=== PATIENT | female | born 1985 | race Caucasian/White ===

== ENCOUNTER 2020-08-19 07:39 | Inpatient (IN) | payer MEDICAID ==
[~2020-08-19] VITALS: Ht 157.5 cm; Wt 134.7 kg
[~2020-08-19 07:39] MED LIST: DOCU-131 PO; IBUP-1222 PO; IBUP-1223 PO; OXYC-302 PO; PREN1TAB60 PO; iron PO
[2020-08-19 08:33] LABS: BASOPHILS % (AUTO) 0 % (0-1); EOSINOPHILS % (AUTO) 0 % (1-7); LYMPHOCYTES % (AUTO) 8 % (22-44); MEAN CORPUSCULAR HEMOGLOBIN 28.8 pg (27.0-34.8); MEAN CORPUSCULAR HGB CONC 32.6 g/dL (32.4-35.8); MEAN PLATELET VOLUME 8.1 fL (7.4-10.4); MONOCYTES % (AUTO) 4 % (2-9); NEUTROPHILS % (AUTO) 87 % (42-75); PLATELET COUNT 199 x10^3/uL (130-400); RED CELL DISTRIBUTION WIDTH 14.7 % (9.6-15.2)
[2020-08-19 08:39] LABS: ALANINE AMINOTRANSFERASE 105 U/L (12-78); ALBUMIN 3.2 g/dL (3.4-5.0); ANION GAP 5 mmol/L (5-15); CALCIUM 8.4 mg/dL (8.5-10.1); CHLORIDE 108 mmol/L (98-107); CREATININE 0.76 mg/dL (0.55-1.02)
[2020-08-19 08:41] LABS: ALKALINE PHOSPHATASE 83 U/L (45-117); BILIRUBIN,TOTAL 0.5 mg/dL (0.2-1.0); TOTAL PROTEIN 7.7 g/dL (6.4-8.2)
--- NOTE | 2020-08-19 09:10 | NUR ---
PT SEEN AT URGENT CARE ON SUNDAY, ED ON SUNDAY, BACK TO ED TODAY FOR WORSENING SX. FEVER, DYSPNEA, SOB, GENERALIZED BACK PAIN. ABLE TO SPEAK IN PARTIAL SENTENCES. TYLENOL AT 0430. STATES SHE HAS BILATERAL PNEUMONIA, WAS SENT HOME WITH STEROIDS AND INHALER; INSTRUCTED TO RETURN IF SX WORSEN.
[2020-08-19] MEDS ORDERED: INHALER (09:21)
[2020-08-19] MEDS ORDERED: ANTIBIOTIC (09:21)
[2020-08-19 09:28] LABS: MD SCAN
[2020-08-19] MEDS ORDERED: SODIUM CHLORIDE 0.9% 1,000ML IVBOLUS ONE (10:00)
[2020-08-19] MEDS ORDERED: IBUPROFEN 800 MG TABLET PO ONE (10:00)
[2020-08-19] MEDS ORDERED: BENZONATATE 100 MG CAPSULE PO ONE (10:00)
--- NOTE | 2020-08-19 10:12 | NUR ---
CT WAITING FOR IV ACCESS- RN AWARE
[2020-08-19] MEDS ORDERED: BENZONATATE 100 MG CAPSULE ONE ×3 (10:52→21:05)
[2020-08-19] MEDS ORDERED: IBUPROFEN 800 MG TABLET ONE (10:52)
--- NOTE | 2020-08-19 11:01 | NUR ---
MOTRIN, TESSELON GIVEN. NS BOLUS HUNG; INFUSING VIA RAC IV ACCESS.
--- NOTE | 2020-08-19 11:11 | NUR ---
TO CT PER KATHE
[2020-08-19 11:18] LABS: C-REACTIVE PROTEIN, QUANT 8.5 mg/dL (0.02-0.49)
[2020-08-19 11:21] LABS: D-DIMER (DIC) 1.29 ug/mlFEU (0.00-0.52); PROTIME 10.6 Seconds (9.6-11.5)
[2020-08-19] MEDS ORDERED: OMNIPAQUE 350 MG/ML, 150 ML BOTTLE ONE (11:40)
[2020-08-19] MEDS ORDERED: CEFTRIAXONE PMX 1GM/50ML 50 ML IV ONE (12:30)
[2020-08-19 12:34] LABS: TROPONIN I < 0.015 ng/mL (0.000-0.045)
[2020-08-19] MEDS ORDERED: CEFTRIAXONE PMX 1GM/50ML 50 ML ONE (13:40)
--- NOTE | 2020-08-19 13:57 | NUR ---
PT REFUSING LUNCH TRAY AT THIS TIME; OPTING FOR APPLESAUCE.
--- NOTE | 2020-08-19 14:00 | NUR ---
AGUSTO MCCLOUD, INFUSING VIA PUMP; IV SITE PATENT.
--- NOTE | 2020-08-19 14:10 | NUR ---
ROOM O2 SAT 89%. O2 4LNC REAPPLIED.
--- NOTE | 2020-08-19 14:38 | NUR ---
PT ENDORSED TO BREAK RN.
--- NOTE | 2020-08-19 15:21 | NUR ---
PT REPORT FROM SUZAN BENNETT. PT CARE TO BE RESUMED.
[2020-08-19] MEDS ORDERED: ONDANSETRON ODT 4 MG PO PRN (16:00)
[2020-08-19] MEDS ORDERED: ONDANSETRON 2MG/ML, 2ML IVPush PRN (16:00)
[2020-08-19] MEDS: DEXAMETHASONE 4 MG/ML, 1ML IVPush SCH ×3 (16:00→21:31)
[2020-08-19] MEDS ORDERED: ENALAPRILAT 1.25 MG/ML, 2ML IVPush PRN (16:00)
--- NOTE | 2020-08-19 16:52 | NUR ---
POSSIBLY DUPLICATE ORDERS NOW IN CHART FOR ROCEPHIN AND TESSELON; TWO ORDERS FOR LOVENOX, DIFFERENT DOSES. WILL CONSULT DR GOMEZ.
[2020-08-19] MEDS ORDERED: ASCORBIC ACID 500 MG TABLET ONE (16:58)
[2020-08-19] MEDS ORDERED: ENOXAPARIN 80 MG/0.8 ML ONE (16:58)
[2020-08-19] MEDS ORDERED: DEXAMETHASONE 4 MG/ML, 1ML ONE ×2 (16:58→21:08)
[2020-08-19] MEDS ORDERED: ENOXAPARIN 60 MG/0.6 ML ONE (16:59)
[2020-08-19] MEDS ORDERED: ENOXAPARIN 80 MG/0.8 ML SQ SCH (17:00)
[2020-08-19] MEDS ORDERED: ACETAMINOPHEN 325 MG TABLET ONE (17:04)
--- NOTE | 2020-08-19 17:04 | NUR ---
PT REQUESTING PAIN MED FOR MAC. TYLENOL ORDERED. ACETAMINOPHEN LISTED IN ALLERGY PROFILE; PT HAD REACTION TO HYDROCODONE/ACETAMINOPHEN; PT REPORTS SHE'S BEEN ABLE TO TAKE TYLENOL SINCE THEN W/OUT ANY PROBLEMS.
[2020-08-19] MEDS: BENZONATATE 100 MG CAPSULE PO SCH ×2 (17:10→21:31)
[2020-08-19] MEDS: ACETAMINOPHEN 325 MG TABLET PO PRN (17:10)
[2020-08-19] MEDS: ASCORBIC ACID 500 MG TABLET PO SCH (17:15)
--- NOTE | 2020-08-19 17:15 | NUR ---
RAC IV SITE OCCLUDED.
[2020-08-19] MEDS: ENOXAPARIN 80 MG/0.8 ML SQ SCH (17:17)
[2020-08-19] MEDS: ENOXAPARIN 60 MG/0.6 ML SQ SCH (17:18)
[2020-08-19] MEDS ORDERED: ONDANSETRON 2MG/ML, 2ML ONE (17:48)
--- NOTE | 2020-08-19 18:45 | NUR ---
DINNER PROVIDED TO PT.
--- NOTE | 2020-08-19 18:59 | NUR ---
PT REPORT TO SUZAN MCDANIEL. PT CARE TRANSFERRED.
[2020-08-19 20:00] VITALS: BP 122/68
[2020-08-19] MEDS ORDERED: KETOROLAC 30 MG/1 ML ONE (21:04)
[2020-08-19] MEDS ORDERED: TRAZODONE 50MG TABLET ONE (21:19)
[2020-08-19] MEDS ORDERED: GUAIFENESIN/DM 200-20MG, 10ML UDC ONE (21:20)
[2020-08-19] MEDS: GUAIFENESIN/DM 200-20MG, 10ML UDC PO PRN (21:31)
[2020-08-19] MEDS: TRAZODONE 50MG TABLET PO PRN (21:31)
[2020-08-19] MEDS: KETOROLAC 30 MG/1 ML IV PRN (21:31)
--- NOTE | 2020-08-20 00:46 | NUR ---
Covering for break, pt sleeping rr equal and unlabored.
[2020-08-20 02:07] VITALS: BP 119/66
[2020-08-20] MEDS ORDERED: DEXAMETHASONE 4 MG/ML, 1ML ONE ×4 (04:54→21:47)
[2020-08-20] MEDS ORDERED: ENOXAPARIN 80 MG/0.8 ML ONE ×2 (04:54→15:43)
[2020-08-20] MEDS ORDERED: ENOXAPARIN 60 MG/0.6 ML ONE ×2 (04:55→15:44)
[2020-08-20] MEDS: DEXAMETHASONE 4 MG/ML, 1ML IVPush SCH ×4 (05:03→22:14)
[2020-08-20] MEDS: ENOXAPARIN 80 MG/0.8 ML SQ SCH ×2 (05:04→16:24)
[2020-08-20] MEDS: ENOXAPARIN 60 MG/0.6 ML SQ SCH ×2 (05:04→16:23)
[2020-08-20] MEDS ORDERED: KETOROLAC 30 MG/1 ML ONE ×2 (05:11→21:47)
[2020-08-20] MEDS ORDERED: GUAIFENESIN/DM 200-20MG, 10ML UDC ONE ×2 (05:12→21:47)
[2020-08-20] MEDS: KETOROLAC 30 MG/1 ML IV PRN ×2 (05:15→22:14)
[2020-08-20] MEDS: GUAIFENESIN/DM 200-20MG, 10ML UDC PO PRN ×2 (05:15→22:14)
[2020-08-20 05:32] LABS: CHLORIDE 105 mmol/L (98-107)
[2020-08-20 05:37] LABS: ALANINE AMINOTRANSFERASE 98 U/L (12-78); ALKALINE PHOSPHATASE 81 U/L (45-117); ANION GAP 5 mmol/L (5-15); BILIRUBIN,TOTAL 0.4 mg/dL (0.2-1.0); CALCIUM 8.6 mg/dL (8.5-10.1); CREATININE 0.63 mg/dL (0.55-1.02); TOTAL PROTEIN 7.7 g/dL (6.4-8.2)
[2020-08-20 05:40] LABS: BASOPHILS % (AUTO) 0 % (0-1); EOSINOPHILS % (AUTO) 0 % (1-7); LYMPHOCYTES % (AUTO) 12 % (22-44); MD NO; MEAN CORPUSCULAR HEMOGLOBIN 28.9 pg (27.0-34.8); MEAN CORPUSCULAR HGB CONC 32.7 g/dL (32.4-35.8); MEAN PLATELET VOLUME 8.4 fL (7.4-10.4); MONOCYTES % (AUTO) 5 % (2-9); NEUTROPHILS % (AUTO) 83 % (42-75); PLATELET COUNT 211 x10^3/uL (130-400); RED BLOOD COUNT 4.62 x10^6/uL (3.82-5.3); RED CELL DISTRIBUTION WIDTH 15.1 % (9.6-15.2)
[2020-08-20] MEDS ORDERED: ZINC SULFATE 220 MG CAPSULE ONE (09:01)
[2020-08-20] MEDS ORDERED: ASCORBIC ACID 500 MG TABLET ONE ×2 (09:02→15:43)
[2020-08-20] MEDS ORDERED: BENZONATATE 100 MG CAPSULE ONE ×3 (09:02→21:47)
[2020-08-20] MEDS: ZINC SULFATE 220 MG CAPSULE PO SCH (09:07)
[2020-08-20] MEDS: ASCORBIC ACID 500 MG TABLET PO SCH ×2 (09:07→16:23)
[2020-08-20] MEDS: BENZONATATE 100 MG CAPSULE PO SCH ×3 (09:08→22:13)
[2020-08-20] MEDS: CHOLECALCIFEROL 1,000 UNIT TABLET PO SCH (09:08)
[2020-08-20] MEDS ORDERED: ACETAMINOPHEN 325 MG TABLET ONE ×2 (09:15→21:47)
[2020-08-20] MEDS: ACETAMINOPHEN 325 MG TABLET PO PRN (09:16)
--- NOTE | 2020-08-20 09:16 | NUR ---
RECEIVED REPORT FROM ANGUS MCDANIEL RN. PT RESTING IN BED. NADN. VSS ON 2.5 L NC. PT AWARE OF POC FOR ADMISSION AND IV ABX AND MEDS PER DEC. PT PROVIDE W/ BREAKFAST TRAY.
--- NOTE | 2020-08-20 10:13 | NUR ---
REPORT GIVEN TO ADARSH RN'S.
--- NOTE | 2020-08-20 11:47 | NUR ---
PT RESTING IN [facility], NO COMPLAINTS AT THIS TIME.
[2020-08-20] MEDS: ALBUTEROL HFA 90 MCG/SPRAY INH SCH ×3 (13:00→22:13)
[2020-08-20] MEDS ORDERED: CEFTRIAXONE PMX 1GM/50ML 50 ML ONE (13:01)
[2020-08-20] MEDS: CEFTRIAXONE PMX 1GM/50ML 50 ML IV SCH (13:05)
[2020-08-20] MEDS ORDERED: ALBUTEROL HFA 90 MCG/SPRAY INH PRN (16:30)
--- NOTE | 2020-08-20 17:05 | NUR ---
PT RESTING IN [facility], NO COMPLAINTS AT THIS TIME.
--- NOTE | 2020-08-20 17:14 | NUR ---
BREAK RN, PT RESTING, NO NEEDS AT THIS TIME
[2020-08-20] MEDS ORDERED: TRAZODONE 50MG TABLET ONE (21:47)
[2020-08-20 22:09] VITALS: BP 100/56
[2020-08-20] MEDS: TRAZODONE 50MG TABLET PO PRN (22:13)
[2020-08-20] MEDS: BUTALB/APAP/CAFFEINE 50MG/325MG/40MG PO PRN (22:14)
[2020-08-21 03:02] VITALS: BP 104/50
[2020-08-21] MEDS ORDERED: DEXAMETHASONE 4 MG/ML, 1ML ONE ×3 (04:46→14:50)
[2020-08-21] MEDS ORDERED: ENOXAPARIN 80 MG/0.8 ML ONE ×2 (04:46→14:50)
[2020-08-21] MEDS ORDERED: ENOXAPARIN 60 MG/0.6 ML ONE ×2 (04:47→14:50)
[2020-08-21] MEDS ORDERED: GUAIFENESIN/DM 200-20MG, 10ML UDC ONE (04:48)
[2020-08-21] MEDS ORDERED: KETOROLAC 30 MG/1 ML ONE (04:52)
[2020-08-21] MEDS: KETOROLAC 30 MG/1 ML IV PRN (04:56)
[2020-08-21] MEDS: GUAIFENESIN/DM 200-20MG, 10ML UDC PO PRN (04:56)
[2020-08-21] MEDS: ENOXAPARIN 60 MG/0.6 ML SQ SCH ×2 (04:56→17:12)
[2020-08-21] MEDS: DEXAMETHASONE 4 MG/ML, 1ML IVPush SCH ×4 (04:56→20:58)
[2020-08-21] MEDS: ENOXAPARIN 80 MG/0.8 ML SQ SCH ×2 (04:57→17:13)
[2020-08-21] MEDS: ALBUTEROL HFA 90 MCG/SPRAY INH SCH ×4 (04:57→20:57)
[2020-08-21 05:11] LABS: BASOPHILS % (AUTO) 0 % (0-1); EOSINOPHILS % (AUTO) 0 % (1-7); LYMPHOCYTES % (AUTO) 14 % (22-44); MEAN CORPUSCULAR HEMOGLOBIN 28.9 pg (27.0-34.8); MEAN CORPUSCULAR HGB CONC 32.6 g/dL (32.4-35.8); MEAN PLATELET VOLUME 8.2 fL (7.4-10.4); MONOCYTES % (AUTO) 7 % (2-9); NEUTROPHILS % (AUTO) 79 % (42-75); PLATELET COUNT 261 x10^3/uL (130-400); RED BLOOD COUNT 4.47 x10^6/uL (3.82-5.3); RED CELL DISTRIBUTION WIDTH 14.6 % (9.6-15.2)
[2020-08-21 05:12] LABS: MD NO
[2020-08-21 05:22] LABS: ALANINE AMINOTRANSFERASE 82 U/L (12-78); ALBUMIN 2.9 g/dL (3.4-5.0); ANION GAP 4 mmol/L (5-15); CALCIUM 8.7 mg/dL (8.5-10.1); CHLORIDE 108 mmol/L (98-107); CREATININE 0.69 mg/dL (0.55-1.02)
[2020-08-21 05:30] LABS: ALKALINE PHOSPHATASE 70 U/L (45-117); BILIRUBIN,TOTAL 0.4 mg/dL (0.2-1.0); C-REACTIVE PROTEIN, QUANT 4.85 mg/dL (0.02-0.49); TOTAL PROTEIN 7.5 g/dL (6.4-8.2)
--- NOTE | 2020-08-21 07:16 | NUR ---
BEDSIDE REPORT RECEIVED FROM SUZAN MOYER FOR TRANSFER OF PATIENT CARE. PATIENT RESTING IN GURNEY WITH EYES CLOSED, RESPIRATIONS EVEN AND UNLABORED, CONNECTED TO DEPUTY PROSECUTING ATTORNEY, NO SIGNS OF ACUTE DISTRESS, CALL LIGHT WITHIN REACH.
[2020-08-21] MEDS ORDERED: ASCORBIC ACID 500 MG TABLET ONE ×2 (07:49→14:50)
[2020-08-21] MEDS ORDERED: ZINC SULFATE 220 MG CAPSULE ONE (07:49)
[2020-08-21] MEDS ORDERED: BENZONATATE 100 MG CAPSULE ONE ×2 (07:50→14:50)
[2020-08-21] MEDS: ASCORBIC ACID 500 MG TABLET PO SCH ×2 (08:52→14:53)
[2020-08-21] MEDS: ZINC SULFATE 220 MG CAPSULE PO SCH (08:52)
[2020-08-21] MEDS: BENZONATATE 100 MG CAPSULE PO SCH ×3 (08:52→20:58)
--- NOTE | 2020-08-21 09:03 | NUR ---
BREAKFAST TRAY PROVIDED TO PATIENT, PATIENT MEDICATED PER eMAR, VITAMIN D REQUESTED FROM PHARMACY AT 0800. CONNECTED TO VITALS MACHINE, NO SIGNS OF ACUTE DISTRESS, CALL LIGHT WITHIN REACH.
[2020-08-21] MEDS: CHOLECALCIFEROL 1,000 UNIT TABLET PO SCH (11:46)
--- NOTE | 2020-08-21 11:47 | NUR ---
BREAK RN: VITAMIN D GIVEN AND DOSE OF ALBUTEROL ADMINISTERED BY PATIENT. NO SIGNS OF ACUTE DISTRESS, CALL LIGHT WITHIN REACH, CONNECTED TO VITALS MACHINE.
[2020-08-21] MEDS: AZITHROMYCIN 500 MG in SODIUM CHLORIDE 0.9% 250 ML IV SCH (12:26)
[2020-08-21] MEDS ORDERED: CEFTRIAXONE PMX 1GM/50ML 50 ML ONE (13:26)
[2020-08-21] MEDS: CEFTRIAXONE PMX 1GM/50ML 50 ML IV SCH (14:45)
[2020-08-21 20:23] VITALS: BP 123/62
[2020-08-21] MEDS: BUTALB/APAP/CAFFEINE 50MG/325MG/40MG PO PRN (21:04)
[2020-08-22 00:37] VITALS: BP 120/60
[2020-08-22] MEDS: GUAIFENESIN/DM 200-20MG, 10ML UDC PO PRN (00:38)
[2020-08-22] MEDS: DEXAMETHASONE 4 MG/ML, 1ML IVPush SCH ×4 (02:55→21:27)
[2020-08-22] MEDS: ALBUTEROL HFA 90 MCG/SPRAY INH SCH ×4 (05:27→21:26)
[2020-08-22] MEDS: ENOXAPARIN 80 MG/0.8 ML SQ SCH ×2 (05:28→07:44)
[2020-08-22] MEDS: ENOXAPARIN 60 MG/0.6 ML SQ SCH (05:28)
[2020-08-22 06:30] LABS: C-REACTIVE PROTEIN, QUANT 1.6 mg/dL (0.02-0.49)
[2020-08-22 07:16] VITALS: BP 127/66
[2020-08-22] MEDS: ASCORBIC ACID 500 MG TABLET PO SCH ×2 (09:06→17:22)
[2020-08-22] MEDS: BENZONATATE 100 MG CAPSULE PO SCH ×3 (09:07→21:27)
[2020-08-22] MEDS: CHOLECALCIFEROL 1,000 UNIT TABLET PO SCH (09:07)
[2020-08-22] MEDS: ZINC SULFATE 220 MG CAPSULE PO SCH (09:07)
[2020-08-22] MEDS: KETOROLAC 30 MG/1 ML IV PRN (09:28)
[2020-08-22 12:37] VITALS: BP 110/58
[2020-08-22] MEDS: CEFTRIAXONE PMX 1GM/50ML 50 ML IV SCH (13:32)
[2020-08-22] MEDS: AZITHROMYCIN 500 MG in SODIUM CHLORIDE 0.9% 250 ML IV SCH (13:32)
[2020-08-22] MEDS: FUROSEMIDE 40 MG/4 ML IV SCH (13:38)
[2020-08-22 19:34] VITALS: BP 108/51
[2020-08-23 01:39] VITALS: BP 128/61
[2020-08-23] MEDS: DEXAMETHASONE 4 MG/ML, 1ML IVPush SCH ×4 (03:34→21:47)
[2020-08-23] MEDS: ALBUTEROL HFA 90 MCG/SPRAY INH SCH ×4 (05:41→21:00)
[2020-08-23] MEDS: GUAIFENESIN/DM 200-20MG, 10ML UDC PO PRN ×3 (06:00→21:47)
[2020-08-23 08:01] VITALS: BP 119/55
[2020-08-23] MEDS: FUROSEMIDE 40 MG/4 ML IV SCH (10:02)
[2020-08-23] MEDS: ASCORBIC ACID 500 MG TABLET PO SCH ×2 (10:03→15:53)
[2020-08-23] MEDS: ZINC SULFATE 220 MG CAPSULE PO SCH (10:03)
[2020-08-23] MEDS: BENZONATATE 100 MG CAPSULE PO SCH ×3 (10:03→21:46)
[2020-08-23] MEDS: CHOLECALCIFEROL 1,000 UNIT TABLET PO SCH (10:03)
[2020-08-23] MEDS: ENOXAPARIN 40 MG/0.4 ML SQ SCH (10:04)
[2020-08-23] MEDS: BUTALB/APAP/CAFFEINE 50MG/325MG/40MG PO PRN ×2 (11:52→21:47)
[2020-08-23] MEDS: AZITHROMYCIN 500 MG in SODIUM CHLORIDE 0.9% 250 ML IV SCH (11:58)
[2020-08-23 12:54] VITALS: BP 125/64
[2020-08-23] MEDS: CEFTRIAXONE PMX 1GM/50ML 50 ML IV SCH (15:53)
[2020-08-23 19:38] VITALS: BP 136/68
[2020-08-23] MEDS: KETOROLAC 30 MG/1 ML IV PRN (21:46)
[2020-08-24 01:08] VITALS: BP 121/64
[2020-08-24] MEDS: DEXAMETHASONE 4 MG/ML, 1ML IVPush SCH ×2 (03:43→09:56)
[2020-08-24] MEDS: ALBUTEROL HFA 90 MCG/SPRAY INH SCH ×2 (06:00→12:30)
[2020-08-24 08:38] VITALS: BP 130/76
[2020-08-24] MEDS: ENOXAPARIN 40 MG/0.4 ML SQ SCH (09:55)
[2020-08-24] MEDS: ASCORBIC ACID 500 MG TABLET PO SCH (09:55)
[2020-08-24] MEDS: ZINC SULFATE 220 MG CAPSULE PO SCH (09:55)
[2020-08-24] MEDS: CHOLECALCIFEROL 1,000 UNIT TABLET PO SCH (09:55)
[2020-08-24] MEDS: BENZONATATE 100 MG CAPSULE PO SCH (09:55)
[2020-08-24] MEDS ORDERED: CHOL10003 PO (11:18)
[2020-08-24] MEDS ORDERED: ZINC220C7 PO (11:18)
[2020-08-24] MEDS ORDERED: ASCO500T9 PO (11:18)
[2020-08-24] MEDS ORDERED: BENZ-17 PO (11:18)
[2020-08-24] MEDS ORDERED: DEXA4TAB66 PO (11:18)
[2020-08-24] MEDS ORDERED: ALBU18HF INH (11:18)
[2020-08-24] MEDS: AZITHROMYCIN 500 MG in SODIUM CHLORIDE 0.9% 250 ML IV SCH (12:29)
[2020-08-24] MEDS ORDERED: FLU VACC QS2020-21(6MOS UP)/PF 60MCG/0.5 ML SYR IM-VACC ONE (13:00)
[2020-08-24 13:09] VITALS: BP 111/52
[2020-08-24] MEDS: CEFTRIAXONE PMX 1GM/50ML 50 ML IV SCH (13:42)
== END 2020-08-24 15:05 | disposition home or self-care (01) | DRG 177 ==
LOC: ED 07:54 → EDIP 12:37 → 3N 08-21 19:05
PROVIDERS: ADMIT Hospitalist; ATTEND Hospitalist
DX: U07.1 COVID-19 (principal); J12.89 Other viral pneumonia; J96.01 Acute respiratory failure with hypoxia; Z68.43 Body mass index [BMI] 50.0-59.9, adult; E66.9 Obesity, unspecified; J20.8 Acute bronchitis due to other specified organisms; Z88.8 Allergy status to other drugs, medicaments and biological substances; Z83.3 Family history of diabetes mellitus
CPT/HCPCS: 36415; 71045; 71275; 80053; 82728; 83605; 83615; 84145; 84484; 85025; 85049; 85379; 85384; 85610; 85730; 86140; 87040; 90686; 93005; 99285; G0378; J0456; J0696; J1100; J1650; J1885; J1940; J2405; Q9967; J7030; J7050